=== PATIENT | female | born 1945 | race Caucasian/White ===

== ENCOUNTER 2016-06-01 05:22 | Inpatient (IN) | payer OTHER ==
[2016-04-19 12:48] VITALS: BMI 29.0
--- NOTE | 2016-04-19 13:40 | PAT Medication Instructions ---
Service Date Apr 19, 2016. Current Home Medication List Aspirin (Aspirin Ec), 81 MG PO DAILY Calcium Citrate-Vitamin D (Citracal + D3 Maximum), 1 TAB PO BID Fish Oil ([place]-3), 1 CAP PO Q2D Levothyroxine Sodium (Levothyroxine Sodium), 1 TAB PO QAM Lorazepam (Ativan), 1 MG PO BID Multiple Vitamins W/ Minerals (Alive Womens 50+), 1 TAB PO QAM Polyethylene Glycol-Propylene (Systane), 1 DROPS OP QID PRN for PRN Pseudoephedrine-Guaifenesin (Mucinex D), 1 TAB PO BID PRN for PRN Medication Instructions For Your Scheduled Surgery - Hold the following medications as of 04/20/16: Fish Oil ([place]-3), 1 CAP PO Q2D - Hold the following medications the morning of surgery: Calcium Citrate-Vitamin D (Citracal + D3 Maximum), 1 TAB PO BID Multiple Vitamins W/ Minerals (Alive Womens 50+), 1 TAB PO QAM Pseudoephedrine-Guaifenesin (Mucinex D), 1 TAB PO BID PRN for PRN - Take the following medications the morning of surgery with a sip of water OTHERWISE NOTHING TO EAT OR DRINK AFTER MIDNIGHT : Aspirin (Aspirin Ec), 81 MG PO DAILY Levothyroxine Sodium (Levothyroxine Sodium), 1 TAB PO QAM Lorazepam (Ativan), 1 MG PO BID Polyethylene Glycol-Propylene (Systane), 1 DROPS OP QID PRN for PRN - Take the following medications as scheduled the night before surgery: Calcium Citrate-Vitamin D (Citracal + D3 Maximum), 1 TAB PO BID Lorazepam (Ativan), 1 MG PO BID Polyethylene Glycol-Propylene (Systane), 1 DROPS OP QID PRN for PRN If you have any questions please call us at [phone] (Karin Rosales PA-C ) or [phone] or [phone]
--- NOTE | 2016-04-19 14:22 | DIAGNOSTIC IMAGING REPORT ---
CHEST PREADMISSION(PA/LAT) HISTORY: Preop. COMPARISON: None. FINDINGS: The lungs are clear. The heart is normal in size. Tortuous distal descending thoracic aorta. No pleural effusions. No pneumothorax. IMPRESSION: No acute process. Electronically signed by: Lazarus Hair M.D. 04/19/2016 2:21 PM
[2016-04-19 17:16] LABS: URINE APPEARANCE CLEAR (CLEAR); URINE BILIRUBIN NEG (NEG); URINE COLOR DK YELLOW; URINE NITRITE NEG (NEG); URINE SPECIFIC GRAVITY 1.014 (1.000-1.030); UROBILINOGEN NEG (NEG)
[2016-04-19 17:42] LABS: MANUAL MICROSCOPIC REQUIRED? NO; REVIEW REQ? NO
[2016-05-08 14:43] LABS: BASO % 0.6 %; BASO ABS # 0.04 K/uL (0-0.2); COMPLETE YES; EOS % 1.3 %; HEMATOCRIT 40.1 % (37-47); IG% 0.2 %; LYMPH % 35.4 %; LYMPH ABS # 2.25 K/uL (1.2-3.4); MEAN CELL VOLUME 91.6 fL (80-100); MEAN CORPUSCULAR HEMOGLOBIN 31.1 pg (25-34); MEAN CORPUSCULAR HGB CONC 33.9 g/dl (32-36); MEAN PLATELET VOLUME 9.1 fL (7.4-10.4); MONO % 6.4 %; NEUT % 56.1 %; PLATELET COUNT 229 K/uL (130-400); RED BLOOD COUNT 4.38 M/uL (4.2-5.4); WHITE BLOOD COUNT 6.36 K/uL (4.8-10.8)
[2016-05-08 15:38] LABS: URINE APPEARANCE CLOUDY (CLEAR); URINE BILIRUBIN NEG (NEG); URINE COLOR DK YELLOW; URINE NITRITE NEG (NEG); URINE PH 6.5 (4.5-7.5); URINE SPECIFIC GRAVITY 1.031 (1.000-1.030); UROBILINOGEN NEG (NEG)
[2016-05-08 15:39] LABS: MANUAL MICROSCOPIC REQUIRED? NO; REVIEW REQ? NO
[2016-06-01] VITALS (10 sets, daily range): BP systolic 105–132; BP diastolic 65–82; PULSE 59–82; TEMP 36.3–36.5; O2SAT 91–97; Ht 162.6 cm; Wt 77.9 kg
[~2016-06-01] VITALS: Ht 162.6 cm; Wt 77.9 kg
[~2016-06-01 05:22] MED LIST: ASPI81TA28 PO; ATV/1 PO; CALC1TAB9 PO; LEVO88TA3 PO; MULT-730 PO; OMEG10007 PO; POLYSOL4 OP; PSEU60TA80 PO
[2016-06-01] MEDS ORDERED: CEFAZOLIN 1000MG/55 ML D5W IV SCH (06:00)
[2016-06-01] MEDS ORDERED: LACTATED RINGER'S 1000ML 1,000 ML IV SCH (06:00)
[2016-06-01] MEDS ORDERED: LIDOCAINE HCL 2% 2 ML VIAL (20MG/ML) ONE (06:48)
[2016-06-01] MEDS ORDERED: PROPOFOL IV EMULSION 10 MG/ML 20 ML VIAL IV ONE (06:48)
[2016-06-01] MEDS ORDERED: NEOSTIGMINE METHYLSULFATE 1 MG/ML 10ML VIAL ONE (06:48)
[2016-06-01] MEDS ORDERED: ROCURONIUM BROMIDE 10 MG/ML 5 ML VIAL ONE (06:48)
[2016-06-01] MEDS ORDERED: DEXAMETHASONE SOD INJ 4 MG/ML VIAL ONE (06:48)
[2016-06-01] MEDS ORDERED: GLYCOPYRROLATE INJ 0.2 MG/ML VIAL ONE (06:48)
[2016-06-01] MEDS ORDERED: ONDANSETRON INJ 2 MG/ML 2 ML VIAL ONE (06:48)
[2016-06-01] MEDS ORDERED: MIDAZOLAM HCL 1 MG/ML 2ML VIAL ONE (06:49)
[2016-06-01] MEDS ORDERED: FENTANYL CITRATE INJ 50 MCG/1 ML 2 ML VIAL ONE (06:49)
[2016-06-01] MEDS ORDERED: EpHEDrine SULFATE INJ 50 MG/ML AMP IV PRN (07:30)
[2016-06-01] MEDS ORDERED: ATROPINE SULFATE 0.1 MG/ML 5ML SYR IV PRN (07:30)
[2016-06-01] MEDS ORDERED: HYDROmorphone INJ 1 MG/ML SYR IV PRN (07:30)
[2016-06-01] MEDS ORDERED: ONDANSETRON INJ 2 MG/ML 2 ML VIAL IV PRN ×2 (07:30→09:30)
--- NOTE | 2016-06-01 07:31 | History & Physical Bridge Note ---
H&P Re-Evaluation Bridge Note: I have examined the patient, reviewed the History & Physical and in the interval since the performance of the History & Physical I have noted the following changes of clinical significance: No changes noted
--- NOTE | 2016-06-01 07:40 | History and Physical ---
History & Physical Date Jun 01, 2016. Chief Complaint back and leg pain History of Present Illness The patient is a 71 year old female with complaints of Additional History Hepatic Disease: No Endocrine Disorder: No Kidney Disease: No Hypertension: No Heart Disease: No Bleeding Tendencies: No Infectious Diseases: No Allergies Coded Allergies: Fluconazole (Unverified Allergy, Unknown, severe headaches per PCP note , 06/01/16) Meclizine (Verified Allergy, Unknown, intractable headache, 06/01/16) Phenobarbital (Verified Allergy, Unknown, blisters on stomach, 06/01/16) Eggs or Egg-derived Products (Verified Adverse Reaction, Unknown, diarrhea , 06/01/16) Home Medications Scheduled Aspirin (Aspirin Ec), 81 MG PO DAILY Calcium Citrate-Vitamin D (Citracal + D3 Maximum), 1 TAB PO BID Fish Oil ([place]-3), 1 CAP PO Q2D Levothyroxine Sodium (Levothyroxine Sodium), 1 TAB PO QAM Lorazepam (Ativan), 1 MG PO BID Multiple Vitamins W/ Minerals (Alive Womens 50+), 1 TAB PO QAM Scheduled PRN Polyethylene Glycol-Propylene (Systane), 1 DROPS OP QID PRN for PRN Pseudoephedrine-Guaifenesin (Mucinex D), 1 TAB PO BID PRN for PRN Physical Examination Skin: warm/dry, no rash Eyes: normal inspection, EOMI, sclerae normal ENT: normal ENT inspection, pharynx normal Head: normocephalic, atraumatic Neck: supple, no adenopathy, trachea midline Respiratory/Chest: lungs clear, normal breath sounds, no respiratory distress Cardiovascular: regular rate, rhythm, no edema, no murmur Abdomen / GI: normal bowel sounds, non tender Back: normal inspection Extremities: normal inspection, normal range of motion Neurologic/Psych: no motor/sensory deficits, alert, normal reflexes, oriented x 3 Diagnosis lumbar stenosis Plan of Treatment decompression fusion L5-S1
--- NOTE | 2016-06-01 07:49 | HISTORY & PHYSICAL EXAMINATION ---
DATE OF ADMISSION: 06/01/2016 CHIEF COMPLAINT: Left leg pain. HISTORY OF PRESENT ILLNESS: Ms. Tinsley is a pleasant 71-year-old old female who has been having difficulties with her left leg since summer. She denies any specific injury or event that occurred. She has failed all conservative measures at this point and is considering surgical intervention. She denies any ivan weakness in legs or any other numbness, tingling, or paresthesias. No pain on the right hand side. PAST MEDICAL HISTORY: Hip replacement, knee replacement and hysterectomy. She suffers from thyroid disease. CURRENT MEDICATIONS: Levothyroxine, lorazepam, multiple vitamin supplements, Mucinex, Systane eyedrops. ALLERGIES: She has no listed drug allergies. REVIEW OF SYSTEMS: Recorded in the patient's medical history. SOCIAL HISTORY: The patient is a 71-year-old female. She is a nonsmoker. She is . Denies any illicit drug use. PHYSICAL EXAMINATION: GENERAL: She stands with an apparent level pelvis. Dirk line is midline. Moves easily about the exam room. She has positive straight leg on the left, negative on the right. Full range of motion of the hips and knees. NEUROLOGIC: Visual barton are grossly intact. CARDIOVASCULAR: Reveals no gross abnormalities. ABDOMEN: Soft, nontender. EXTREMITIES: Calves are soft and nontender. Gait is stable. RADIOGRAPHIC IMAGES: Recent MRI of the lumbar spine performed today revealing disc desiccation at L5-S1 with significant spinal stenosis, lateral recess and foraminal stenosis. ASSESSMENT: L5-S1 spinal stenosis with left-sided radiculopathy. PLAN: At this point she is considering surgical intervention. Surgically could consider performing a lumbar decompression at the L5-S1 level and resect the large portion of the facet joints. We would also fuse it at the same time. The main benefit of this approach is significant chance for reduction of her radicular complaints thus a lesser degree lower back pain. Will proceed with surgical intervention. If she has any other questions, she will contact our office.
[2016-06-01] MEDS ORDERED: EpHEDrine SULFATE INJ 50 MG/ML AMP ONE (08:22)
[2016-06-01] MEDS ORDERED: BUPIVACAINE/EPINEPHRINE 0.5% MPF 1:200,000 30 ML VIAL INJ ONE (08:29)
[2016-06-01] MEDS ORDERED: FLOSEAL HEMOSTATIC MATRIX 10ML TOP ONE (09:17)
[2016-06-01] MEDS ORDERED: BACITRACIN 50000 UNIT VIAL IR ONE (09:17)
[2016-06-01] MEDS ORDERED: SODIUM CHLORIDE 0.9% 1000ML 1,000 ML IV SCH (09:20)
--- NOTE | 2016-06-01 09:20 | [facility] Post Operative Brief Note ---
Immediate Operative Summary Operative Date Jun 01, 2016. Pre-Operative Diagnosis L5-S1 spinal stenosis with left-sided radiculopathy Post-Operative Diagnosis same as preop Procedure(s) Performed L5-S1 Decompression, posterior instrumented fusion, posterolateral fusion, application of interbody cage, use of bone morphogenetic protein and Lakeisha allograft Surgeon Dr. Redman Feed Research Technician Surgeon(s) Clement Montano PA-C Estimated Blood Loss 100 ML Findings stenosis/spondy Specimens none
[2016-06-01] MEDS ORDERED: FAMOTIDINE 20 MG TAB PO PRN (09:30)
[2016-06-01] MEDS ORDERED: SOD PHOSPHATE/SOD BIPHOSPHATE ENEMA 132 ML BTL PR PRN (09:30)
[2016-06-01] MEDS ORDERED: ALUMINUM/MAGNESIUM SUSP 30 ML UDC PO PRN (09:30)
[2016-06-01] MEDS ORDERED: DO NOT ADMINISTER FLU VACCINE PRN ×3 (09:30)
[2016-06-01] MEDS ORDERED: DO NOT ADMINISTER PNEUMOCOCCAL VACCINE PRN ×2 (09:30)
[2016-06-01] MEDS ORDERED: BISACODYL 10 MG SUPP PR PRN (09:30)
[2016-06-01] MEDS ORDERED: ACETAMINOPHEN IV 100 ML IV PRN (09:30)
[2016-06-01] MEDS ORDERED: METOCLOPRAMIDE HCL INJ 5 MG/ML 2 ML VIAL IV PRN (09:30)
[2016-06-01] MEDS ORDERED: LORAZEPAM INJ 0.5 MG in SYRINGE 0.75 ML IV PRN (09:30)
[2016-06-01] MEDS ORDERED: NALOXONE HCL 0.4 MG/1 ML VIAL/CARP IV PRN ×2 (09:30)
[2016-06-01] MEDS ORDERED: hydrOXYzine HCL 25 MG TAB PO PRN (09:30)
[2016-06-01] MEDS ORDERED: MAGNESIUM HYDROXIDE SUSP 30 ML UDC PO PRN (09:30)
[2016-06-01] MEDS ORDERED: ACETAMINOPHEN 500 MG TAB PO PRN (09:30)
[2016-06-01] MEDS ORDERED: PROMETHAZINE HCL INJ 12.5 MG in SODIUM CHLORIDE 0.9% 50ML 50 ML IV PRN (09:30)
--- NOTE | 2016-06-01 09:35 | DIAGNOSTIC IMAGING REPORT ---
LUMBAR SPINE, INTRAOPERATIVE FLUOROSCOPY HISTORY: L5-S1 decompression and fusion. FLUOROSCOPY TIME: 17 seconds. FINDINGS: Intraoperative fluoroscopy was provided for the lumbar spine. 2 fluoroscopic spot images were obtained. Pedicle screws and rods at L5-S1 consistent with a posterior decompression and fusion. The hardware is intact. IMPRESSION: Fluoroscopy provided for a L5-S1 posterior decompression and fusion. Electronically signed by: Lazarus Hair M.D. 06/01/2016 9:33 AM Dictated Date/Time: 06/01/2016 9:33 AM
[2016-06-01] MEDS ORDERED: HYDROmorphone HCL 0.5MG/ML 50 ML CASSETTE ONE (09:40)
[2016-06-01] MEDS: FENTANYL CITRATE INJ 50 MCG/1 ML 2 ML VIAL IV PRN ×4 (10:00→10:15)
[2016-06-01] MEDS: HYDROmorphone HCL 0.5MG/ML 50 ML CASSETTE IV PRN ×3 (11:13→23:08)
[2016-06-01] MEDS: LACTATED RINGER'S 1000ML 1,000 ML IV SCH ×2 (11:15→22:06)
--- NOTE | 2016-06-01 11:46 | Anesthesiology Progress Note ---
Anesthesia Post Op Note Date & Time Jun 01, 2016 at 11:46 Vital Signs Pain Intensity: 2 Vital Signs Past 12 Hours Date Time Temp Pulse Resp B/P Pulse Ox O2 Delivery O2 Flow Rate FiO2 06/01/16 10:58 116/69 06/01/16 10:55 67 17 06/01/16 10:55 68 17 96 06/01/16 10:53 119/60 06/01/16 10:50 53 7 06/01/16 10:50 52 7 96 06/01/16 10:48 118/62 06/01/16 10:45 54 6 06/01/16 10:45 54 6 95 06/01/16 10:43 116/61 06/01/16 10:40 52 10 06/01/16 10:40 53 10 94 06/01/16 10:38 121/62 06/01/16 10:35 57 10 95 06/01/16 10:35 55 10 06/01/16 10:33 125/65 06/01/16 10:30 50 5 06/01/16 10:30 51 5 95 06/01/16 10:28 122/61 06/01/16 10:25 52 5 94 06/01/16 10:25 53 5 06/01/16 10:24 52 16 06/01/16 10:24 52 16 94 06/01/16 10:23 135/67 06/01/16 10:22 36.3 57 16 135/67 96 Nasal Cannula 4 06/01/16 10:19 58 9 06/01/16 10:19 63 9 95 06/01/16 10:18 125/69 06/01/16 10:14 53 13 92 06/01/16 10:14 54 13 06/01/16 10:13 121/67 06/01/16 10:09 56 18 96 06/01/16 10:09 56 18 06/01/16 10:08 127/69 06/01/16 10:07 55 15 06/01/16 10:07 63 15 97 06/01/16 10:03 118/66 06/01/16 10:02 61 15 96 06/01/16 10:02 61 15 06/01/16 09:58 123/69 06/01/16 09:57 63 17 96 06/01/16 09:57 63 17 06/01/16 09:53 124/80 06/01/16 09:52 65 12 96 06/01/16 09:52 65 12 06/01/16 09:48 133/76 06/01/16 09:47 66 24 06/01/16 09:47 66 24 100 06/01/16 09:43 130/75 06/01/16 09:42 71 21 06/01/16 09:42 71 21 98 06/01/16 09:38 125/73 06/01/16 09:37 36.0 74 14 130/73 99 Mask 10 06/01/16 09:37 70 14 99 06/01/16 09:37 71 14 06/01/16 05:55 36.5 66 18 132/82 97 Room Air Notes Mental Status: alert / awake / arousable, participated in evaluation Pt Amnestic to Procedure: Yes Nausea / Vomiting: adequately controlled Pain: adequately controlled Airway Patency, RR, SpO2: stable & adequate BP & HR: stable & adequate Hydration State: stable & adequate Anesthetic Complications: no major complications apparent
--- NOTE | 2016-06-01 11:47 | OPERATIVE REPORT ---
DATE OF OPERATION: 06/01/2016 PREOPERATIVE DIAGNOSES: Spinal stenosis and spondylolisthesis. POSTOPERATIVE DIAGNOSIS: Same. PROCEDURES PERFORMED: 1. Lumbar decompression, medial facetectomy and foraminotomy, L5-S1. 2. Posterior spinal fusion, L5-S1. 3. Placement of posterior instrumentation using Orthros rods and screws, L5-S1. 4. Interbody fusion, L5-S1. 5. Placement of PEEK cage 12 x 22 mm at L5-S1. 6. Placement of locally harvested morselized autograft in the posterior gutters. 7. Placement of Infuse collagen sponge combined with Mastergraft in the posterolateral gutters and Lakeisha bone graft in the interbody space. SURGEON: Dr. Sher Redman. COMMUNICATIONS DIRECTOR: Seymour Montano PA-C. Due to the complex nature of the procedure, the entire surgery was performed with the human resources benefits assistant of CORRIE Gilmore. The assistant film editor, under direct supervision, was involved in the actual performance of all aspects of the surgical procedure including hemostasis, tissue retraction and incision, instrument management, patient positioning, and wound closure. ANESTHESIA: General. DISPOSITION: The patient awakened and taken to PACU in stable condition. HISTORY OF PATIENT'S PROBLEMS: This is a 71-year-old female that presents with above-mentioned diagnoses. After failing an extensive course of nonoperative care, she elected to undergo the above-mentioned procedures. Risks, benefits, pros, cons, and alternatives were outlined in detail preoperatively. DESCRIPTION OF PROCEDURE: The patient was met with preoperatively, case discussed and all questions were addressed. At that point, the patient was taken back to operative suite and after undergoing successful general endotracheal intubation by the department of anesthesia, was placed in prone position on Fernando table atop a Pierre frame. All bony prominences were well padded and the eyes were inspected to ensure there was no external pressure placed upon them. At this point, lumbar spine was prepped and draped in normal sterile fashion. Sharp dissection with the assistance of Bovie cautery was performed down to and exposing the lamina and transverse processes of L5 and the sacral ala bilaterally. From a caudal to cephalad fashion, complete laminectomy of L5 was performed, including bilateral medial facetectomies and foraminotomies addressing the severe stenosis. Pedicle screws were then placed in L4-L5 bilaterally with assistance of fluoroscopy and appropriate size keshawn provisionally placed. Through transforaminal approach on the left, a complete diskectomy was performed, endplates curetted to subcortical bleeding bone and a 12 x 22 mm PEEK cage filled with Lakeisha bone grafting tapped into position. The rods were then locked into final position bilaterally and transverse processes of L5 and the sacral ala burred to subcortical bone. Infuse collagen sponge combined with Mastergraft was placed in the posterolateral gutters. A 7 flat JUANA drain was inserted. The incision was closed with 1-0 Vicryl in the fascia, 2-0 Vicryl subcutaneously, and 4-0 Monocryl for final skin closure. Steri-Strips and sterile dressing placed. The patient was awakened and taken to PACU in stable condition. I attest to the content of the Intraoperative Record and any orders documented therein. Any exceptio ns are noted below.
[2016-06-01] MEDS: DEXAMETHASONE INJ 6 MG in SYRINGE 0 ML IV SCH ×2 (16:45→23:54)
[2016-06-01] MEDS: CEFAZOLIN IV 2,000 MG in DEXTROSE 5% 50ML 50 ML IV SCH ×2 (17:15→23:54)
[2016-06-01] MEDS: LORAZEPAM 0.5 MG TAB PO PRN ×2 (20:16→23:55)
[2016-06-01] MEDS: DOCUSATE SODIUM/SENNA 50/8.6MG TAB PO SCH (20:51)
[2016-06-02 04:00] VITALS: BP 112/78; PULSE 74; TEMP 36.2; O2SAT 96
[2016-06-02] MEDS ORDERED: HYDROmorphone INJ 1 MG/ML SYR IV PRN (06:00)
[2016-06-02] MEDS ORDERED: HYDROmorphone INJ 0.5 MG/0.5 ML SYR IV PRN (06:00)
[2016-06-02] MEDS ORDERED: DC PCA ONE (06:00)
[2016-06-02] MEDS: LEVOTHYROXINE 88 MCG TAB PO SCH (06:41)
[2016-06-02] MEDS ORDERED: NURSING VERBAL MED ORDER ONE ×3 (06:45→10:45)
[2016-06-02 07:56] VITALS: BP 122/73; PULSE 72; TEMP 36.6; O2SAT 94
[2016-06-02] MEDS: DEXAMETHASONE INJ 6 MG in SYRINGE 0 ML IV SCH (08:03)
[2016-06-02 08:14] LABS: COMPLETE YES; HEMATOCRIT 37.5 % (37-47); IG% 0.2 %; LYMPH % 6.7 %; LYMPH ABS # 0.75 K/uL (1.2-3.4); MEAN CELL VOLUME 91.7 fL (80-100); MEAN CORPUSCULAR HEMOGLOBIN 30.3 pg (25-34); MEAN CORPUSCULAR HGB CONC 33.1 g/dl (32-36); MEAN PLATELET VOLUME 8.9 fL (7.4-10.4); MONO % 3.2 %; NEUT % 89.9 %; PLATELET COUNT 205 K/uL (130-400); RED BLOOD COUNT 4.09 M/uL (4.2-5.4); WHITE BLOOD COUNT 11.25 K/uL (4.8-10.8)
[2016-06-02 08:39] LABS: BUN/CREATININE RATIO 12.6 (10-20); CALCIUM 9.3 mg/dl (8.5-10.1); CREATININE 1.1 mg/dl (0.60-1.20); POTASSIUM 4.7 mmol/L (3.5-5.1)
[2016-06-02] MEDS: ASPIRIN 81 MG ECTAB PO SCH (09:05)
[2016-06-02] MEDS: OXYCODONE HCL IR 5 MG TAB (IMMEDIATE RELEASE) PO PRN ×3 (09:10→20:36)
[2016-06-02] MEDS ORDERED: GUAIFENESIN 600 MG TABCR PO ONE (10:45)
[2016-06-02 11:08] VITALS: BP 129/74; PULSE 67; O2SAT 98
[2016-06-02 12:10] VITALS: BP 120/80; PULSE 76; TEMP 36.6; O2SAT 94
[2016-06-02 15:06] VITALS: BP 123/73; PULSE 83; TEMP 36.5; O2SAT 93
[2016-06-02] MEDS: DOCUSATE SODIUM/SENNA 50/8.6MG TAB PO SCH (20:36)
[2016-06-02] MEDS: GUAIFENESIN 600 MG TABCR PO SCH (20:36)
[2016-06-02] MEDS: LORAZEPAM 0.5 MG TAB PO PRN (20:40)
[2016-06-02 22:52] VITALS: BP 117/73; PULSE 71; TEMP 36.4; O2SAT 95
[2016-06-03] MEDS: OXYCODONE HCL IR 5 MG TAB (IMMEDIATE RELEASE) PO PRN ×6 (00:25→23:47)
[2016-06-03] MEDS: LORAZEPAM 0.5 MG TAB PO PRN ×2 (04:55→18:40)
[2016-06-03] MEDS ORDERED: POLYETHYLENE (MIRALAX) 17 GM PACK PO SCH (06:00)
[2016-06-03] MEDS: LEVOTHYROXINE 88 MCG TAB PO SCH (06:29)
[2016-06-03 06:32] VITALS: BP 103/69; PULSE 65; TEMP 36.7; O2SAT 94
[2016-06-03] MEDS: GUAIFENESIN 600 MG TABCR PO SCH ×2 (08:01→21:37)
[2016-06-03] MEDS: ASPIRIN 81 MG ECTAB PO SCH (08:01)
--- NOTE | 2016-06-03 09:09 | PROGRESS NOTE ---
DATE: 06/03/2016 Postop day 2. Back pain is controlled. Leg pain improved. Vital signs stable. T-max 36.7. JUANA drained 30 mL. Bowel movement yesterday. Hematocrit stable at 37.5. On exam, the patient is ambulating in halls, has good strength to testing. Appears comfortable. ASSESSMENT: Status post lumbar decompression and fusion. PLAN: At this time, we anticipate discharge home tomorrow. She is requesting home health. This is reasonable. Otherwise, will continue therapy as tolerated.
[2016-06-03] MEDS ORDERED: RXC5 PO (09:10)
--- NOTE | 2016-06-03 09:10 | Discharge Instructions ---
Discharge Instructions Admission Reason for Admission: Spinal Stenosis;Z01.812 Discharge Discharge Diagnosis / Problem: stenosis Discharge Goals Goal(s): Improve function Activity Recommendations Activity Limitations: per Instructions/Follow-up section . Instructions / Follow-Up Instructions / Follow-Up ACTIVITY RECOMMENDATIONS: SELF CARE INSTRUCTIONS AFTER THORACIC/LUMBAR FUSIONS 1. You may walk to your tolerance. It is good exercise for your legs and back. Expect some back and intermittent leg aches and pains. 2. You may perform "counter-top" level activities (make a sandwich, maria isabel with a project, etc.). 3. No bending or lifting of more than 10 pounds or back twisting of any nature (roll like a log when turning in bed). 4. You may ride in a car for 20-30 minutes at a time. No driving until after your first visit with your doctor. 5. Frequent changes of position and restricting sitting to 30 minutes at a time will help limit the amount of back spasms and stiffness you may experience. 6. You may discontinue the use of ambulatory aids (cane, crutches, etc.) once your strength and confidence allow. 7. You may investigator fraud the shower and let water strike your incision when you arrive home at least once daily. Do not take a tub bath, sit in a hot tub or go into a swimming pool until after your first recheck in the office. SPECIAL CARE INSTRUCTIONS: VERY IMPORTANT TO READ AND REVIEW A. Your surgical incision has been closed with a cosmetic suture under the skin that will dissolve in about 6 weeks. In 14 days, you can use a pair of clean scissors and cut the suture that is left outside of the skin at the ends of your incision. 1. The small skin tapes can be removed 7 days after surgery if they have not fallen off by that point. 2. You may keep the wound open to air as much as possible to promote healing after post-op day number 5 unless told otherwise by your doctor. 3. If you think the wound looks like it is becoming infected (redness or worsening drainage) and/or you are experiencing fever, chill or worsening back pain and muscle spasms, contact the office so that we may evaluate you as soon as possible. B. Complications are uncommon, but please contact us if you have any signs or symptoms of: 1. wound infection (fever higher than 102.5 degrees F, redness, separation of wound, drainage, or increasing pain from the incision) 2. blood clots in legs (pain, swelling, redness and warmth in legs) 3. urinary tract infection (fever higher than 102.5 degrees F, burning upon urination or increased frequency of urination) 4. nerve problems (inability to walk on your toes or heels, numbness, loss of bowel or bladder control) 5. any other symptoms that concern you C. Please call the office at if you have any concerns or questions about your operation or recovery. D. No smoking! Smoking drastically decreases the chance of a solid fusion. E. Do not take any anti-inflammatory medications (Indocin, Advil, Motrin, Aspirin, Naprosyn, etc.) as these may inhibit the chance of a solid fusion. Tylenol is okay to take for pain. MANAGING PAIN AFTER SPINAL SURGERY 1. Narcotic medication is intended for short-term use and will be provided for surgical pain. Surgical pain usually lasts for a period of 4-6 weeks. Narcotic medication includes Percocet, Vicodin, Darvocet, Tylenol #3 or Lortab. 2. Longer-term pain is more appropriately treated with non-narcotic medication such as Tylenol ES. 3. Muscle spasm is not appropriately treated with narcotics. Muscle relaxers such as Soma, Flexeril or Skelaxin can be used along with Tylenol ES. 4. Remember that we all live with some "aches and pains". This is not unusual or uncommon after an injury or as we get older. a. Back pain is expected and may include muscle spasms for 4 to 6 weeks after surgery. The pain should gradually improve. If the pain worsens for no apparent reason, please contact the office. b. Intermittent leg pain may also be experienced and should not be concerned about unless it worsens for no apparent reason. If so, please contact the office. 5. We will provide appropriate medication within the normal guidelines of their prescribed use. We will also be very cautious and aware of potential abuse and extended duration of patients' medication needs. a. Pain medications are for your comfort and to assist with sleep and rest so that the tissue can heal. They are not provided in order to return to normal activity and should not be used through the day. To do so or worsening pain at night can result from ongoing tissue damage and development of tolerance to the prescribed medicine. 6. Please allow 2-3 days to process refills. Prescriptions will not be mailed but must be picked up at the office. FOLLOW UP VISIT: Keep your scheduled follow-up appointment. Any questions, please call the office at . Current Hospital Diet Patient's current hospital diet: Regular Diet Discharge Diet Recommended Diet: Regular Diet Procedures Procedures Performed: L5-S1 Decompression, posterior instrumented fusion, posterolateral fusion, application of interbody cage, use of bone morphogenetic protein and Lakeisha allograft Pending Studies Studies pending at discharge: no Medical Emergencies . Who to Call and When: Medical Emergencies: If at any time you feel your situation is an emergency, please call 911 immediately. . Non-Emergent Contact Non-Emergency issues call your: Primary Care Provider . "Provider Documentation" section prepared by Sher Redman. VTE Core Measure Inpt VTE Proph given/why not?: José Antonio Negro, SCD's
[2016-06-03 12:53] VITALS: BP 103/69; PULSE 65; O2SAT 94
[2016-06-03 15:02] VITALS: BP 97/60; PULSE 75; TEMP 36.9; O2SAT 94
[2016-06-03] MEDS: DOCUSATE SODIUM/SENNA 50/8.6MG TAB PO SCH (21:37)
[2016-06-03 22:59] VITALS: BP 101/65; PULSE 74; TEMP 36.7; O2SAT 94
[2016-06-04] MEDS: LEVOTHYROXINE 88 MCG TAB PO SCH (05:42)
[2016-06-04 06:27] VITALS: BP 97/57; PULSE 87; TEMP 36.5; O2SAT 93
--- NOTE | 2016-06-04 07:02 | PROGRESS NOTE ---
DATE: 06/02/2016 DATE: 06/02/2016. SUBJECTIVE: Ms. Tinsley is here postop day #1, status post L5-S1 decompression and fusion. She is doing well this morning. She is not having any increasing pain going down the legs. Does have some discomfort in the back itself. She is tolerating p.o. She is not nauseous. She denies any increasing pain, numbness or tingling. OBJECTIVE: VITAL SIGNS: On exam she afebrile. Vital signs are stable. JUANA drain has placed out 40 mL last shift, 125 the previous. ABDOMEN: Soft, nontender. EXTREMITIES: Calves are soft and nontender. The patient is alert and oriented. ASSESSMENT: Patient is stable postop day #1. PLAN: At this point, will continue pain control, GI and DVT prophylaxis and mobilization with physical therapy. Our hope is that she can go home either tomorrow or Saturday.
[2016-06-04] MEDS: ASPIRIN 81 MG ECTAB PO SCH (07:29)
[2016-06-04] MEDS: OXYCODONE HCL IR 5 MG TAB (IMMEDIATE RELEASE) PO PRN ×4 (07:29→23:39)
[2016-06-04] MEDS: GUAIFENESIN 600 MG TABCR PO SCH ×2 (07:30→20:57)
--- NOTE | 2016-06-04 07:44 | Anesthesiology Progress Note ---
Anesthesia Post Op Note Date & Time Jun 04, 2016 at 07:43 Vital Signs Pain Intensity: 6.0 Vital Signs Past 12 Hours Date Time Temp Pulse Resp B/P Pulse Ox O2 Delivery O2 Flow Rate FiO2 06/04/16 06:27 36.5 87 18 97/57 93 Room Air 06/03/16 23:45 Room Air 06/03/16 22:59 36.7 74 18 101/65 94 Room Air Notes Mental Status: alert / awake / arousable, participated in evaluation Pt Amnestic to Procedure: Yes Nausea / Vomiting: adequately controlled Pain: adequately controlled Airway Patency, RR, SpO2: stable & adequate BP & HR: stable & adequate Hydration State: stable & adequate Anesthetic Complications: no major complications apparent
--- NOTE | 2016-06-04 12:38 | PROGRESS NOTE ---
DATE: 06/04/2016 Postop day 3. Back pain is much improved. Leg pain improved. Vital signs stable. T-max 36.5. JUANA drain decreased to 25 mL. On exam, she is up in bed, has good strength to testing. Appears much more comfortable today. No longer struggling with any nausea or vomiting. ASSESSMENT: Status post revision decompression and fusion. PLAN: At this time, will continue with physical therapy today. Anticipate home tomorrow.
--- NOTE | 2016-06-04 12:47 | DISCHARGE SUMMARY ---
PRINCIPAL DIAGNOSIS: Spinal stenosis. HOSPITAL COURSE FOLLOWS: On 06/01/2016 patient underwent lumbar decompression and fusion, tolerated this well and taken to the orthopedic floor postoperatively. Postop day #1 she was up and ambulatory, progressed to postop day #2. Subsequently on postop day #3 she was discharged to rehab center. Discharge orders and instructions found on the chart for further review.
[2016-06-04 15:20] VITALS: BP 120/71; PULSE 76; TEMP 36.7; O2SAT 98
[2016-06-04] MEDS: LORAZEPAM 1 MG TAB PO PRN (19:00)
[2016-06-04] MEDS: DOCUSATE SODIUM/SENNA 50/8.6MG TAB PO SCH (20:57)
[2016-06-04 23:11] VITALS: BP 91/54; PULSE 90; TEMP 36.4; O2SAT 94
[2016-06-05] MEDS: LEVOTHYROXINE 88 MCG TAB PO SCH (05:33)
[2016-06-05 06:45] VITALS: BP 105/58; PULSE 85; TEMP 36.6; O2SAT 95
[2016-06-05 07:44] VITALS: BP 109/76; PULSE 89; TEMP 36.8; O2SAT 98
[2016-06-05] MEDS: LORAZEPAM 1 MG TAB PO PRN (08:51)
[2016-06-05] MEDS: ASPIRIN 81 MG ECTAB PO SCH (08:52)
[2016-06-05] MEDS: GUAIFENESIN 600 MG TABCR PO SCH (08:52)
[2016-06-05] MEDS: OXYCODONE HCL IR 5 MG TAB (IMMEDIATE RELEASE) PO PRN (08:52)
[2016-06-05 11:09] VITALS: BP 109/76; PULSE 89; TEMP 36.8; O2SAT 98
== END 2016-06-05 11:30 | DRG 460 ==
LOC: ENRESERV → ENRESERVTM → ENRESERVDT → C.ACU 05:22 → C.MSN 07:30
PROVIDERS: ADMIT Orthopaedic Surgery Orthopaedic Surgery of the Spine; ATTEND Orthopaedic Surgery Orthopaedic Surgery of the Spine
PROC: 0SG3071 Fusion of Lumbosacral Joint with Autologous Tissue Substitute, Posterior Approach, Posterior Column, Open Approach (ICD-10-PCS; principal; 2016-06-01 07:30)
PROC: 0SG30AJ Fusion of Lumbosacral Joint with Interbody Fusion Device, Posterior Approach, Anterior Column, Open Approach (ICD-10-PCS; principal; 2016-06-01 07:30)
PROC: 0ST40ZZ Resection of Lumbosacral Disc, Open Approach (ICD-10-PCS; principal; 2016-06-01 07:30)
PROC: 3E0U0GB Introduction of Recombinant Bone Morphogenetic Protein into Joints, Open Approach (ICD-10-PCS; principal; 2016-06-01 07:30)
DX: M48.07 Spinal stenosis, lumbosacral region (principal); M43.17 Spondylolisthesis, lumbosacral region; M54.16 Radiculopathy, lumbar region; E03.9 Hypothyroidism, unspecified; M19.90 Unspecified osteoarthritis, unspecified site; F41.9 Anxiety disorder, unspecified; F32.9 Major depressive disorder, single episode, unspecified; Z96.643 Presence of artificial hip joint, bilateral; Z96.653 Presence of artificial knee joint, bilateral; Z86.718 Personal history of other venous thrombosis and embolism; Z79.82 Long term (current) use of aspirin; Z79.899 Other long term (current) drug therapy

== ENCOUNTER → 2017-05-23 | Outpatient (CLI) | payer OTHER ==
[~2017-05-23] MED LIST changes: +RXC5 PO
== END | disposition home or self-care (01) ==
LOC: C.LABSPEC 16:28
PROVIDERS: ATTEND Obstetrics & Gynecology
DX: N89.8 Other specified noninflammatory disorders of vagina (principal)